=== PATIENT | female | born 1995 ===

== ENCOUNTER 2018-07-28 19:57 | Emergency (ER) | payer MEDICAID ==
--- NOTE | 2018-07-28 21:08 | C.PDOC ---
History Of Present Illness 22 year old female presents to the ER with a complaint of bleeding for the past 14 days and cramping pelvic pain. Patient states the bleeding was consistently at first, over the last week it became intermittent, it stop yesterday and today had light scant bleeding. Patient reports she does not have a MIMEOGRAPHER. Denies nausea, vomiting, urinary symptoms, back pain, or concern for STD. Time Seen by Provider: 07/28/18 20:25 Chief Complaint (Nursing): Female Genitourinary History Per: Patient History/Exam Limitations: no limitations Onset/Duration Of Symptoms: Days, Intermittent Episodes Current Symptoms Are (Timing): Still Present Quality Of Discomfort: Unable To Describe Associated Symptoms: denies: Fever, Nausea, Vomiting, Back Pain, Urinary Symptoms Alleviating Factors: None Recent travel outside of the [place]: No Abnormal Vaginal Bleeding: Yes Past Medical History Reviewed: Historical Data, Nursing Documentation, Vital Signs Vital Signs: Last Vital Signs Temp 99.1 F 07/28/18 21:14 Pulse 87 07/28/18 21:14 Resp 16 07/28/18 21:14 BP 112/72 07/28/18 21:14 Pulse Ox 100 07/28/18 21:40 - Medical History PMH: No Chronic Diseases Surgical History: No Surg Hx Family History: States: Unknown Family Hx - Social History Hx Alcohol Use: No Hx Substance Use: No - Immunization History Hx Tetanus Toxoid Vaccination: No Hx Influenza Vaccination: No Hx Pneumococcal Vaccination: No Review Of Systems Constitutional: Negative for: Fever, Chills Cardiovascular: Negative for: Palpitations Respiratory: Negative for: Shortness of Breath Gastrointestinal: Negative for: Nausea, Vomiting Genitourinary: Positive for: Vaginal Bleeding. Negative for: Dysuria, Hematuria Musculoskeletal: Negative for: Back Pain Neurological: Negative for: Weakness, Headache, Dizziness Physical Exam - Physical Exam Appears: Non-toxic Skin: Normal Color, Warm, Dry Head: Atraumatic, Normacephalic Eye(s): bilateral: Normal Inspection, EOMI, Other (no conjunctival pallor) Oral Mucosa: Moist Neck: Normal ROM Chest: Symmetrical, No Tenderness Cardiovascular: Rhythm Regular Respiratory: Normal Breath Sounds, No Rales, No Rhonchi, No Wheezing Gastrointestinal/Abdominal: Soft, Tenderness (Mild suprapubic), No Guarding, No Rebound Back: No CVA Tenderness Pelvic: No Vaginal Bleeding, Vaginal Discharge (Scant white, no foul odor), No Cervical Motion Tenderness, No Adnexal Tenderness, No Mass Neurological/Psych: Oriented x3, Normal Speech ED Course And Treatment O2 Sat by Pulse Oximetry: 100 (Room air) Pulse Ox Interpretation: Normal Medical Decision Making Medical Decision Making: Patient with complaints of intermittent vaginal bleeding, not currently bleeding. test was negative. Vitals are stable, and no complaints of weakness or dizziness to suggest any hemodynamic instability; there is no indication for further medical evaluation at this time.Will discharge home with instructions to follow up with MIMEOGRAPHER. Disposition Counseled Patient/Family Regarding: Diagnosis, Need For Followup - Dis[facility] Disposition: HOME/ ROUTINE Disposition Time: 21:06 Condition: STABLE Additional Instructions: Seguimiento con gineclogo o clnica jerica naproxeno para el dolor segn sea necesario jerica provera si el sangrado contina Prescriptions: MedroxyPROGESTERone [Provera] 1 tab PO DAILY #10 tab Naproxen [Naprosyn] 1 tab PO BID PRN #25 tab PRN Reason: Pain Instructions: Menstrual Cramps (DC) Forms: [employer] (Greek) Print Language: FRISIAN - POA Present On Arrival: None - Clinical Impression Clinical Impression: Dysmenorrhea - PA / [employer] / Resident Statement MD/DO has reviewed & agrees with the documentation as recorded. - Scribe Statement The provider has reviewed the documentation as recorded by the Scribe Pardeep Brock All medical record entries made by the Scribe were at my direction and personally dictated by me. I have reviewed the chart and agree that the record accurately reflects my personal performance of the history, physical exam, medical decision making, and the department course for this patient. I have also personally directed, reviewed, and agree with the discharge instructions and disposition.
[2018-07-28 21:15] VITALS: BP 112/72; PULSE 87; RESP 16; TEMP 99.1
[2018-07-28 21:31] VITALS: O2SAT 100
== END 2018-07-28 21:28 | disposition home or self-care (01) ==
LOC: C.ER 19:57
DX: N94.6 Dysmenorrhea, unspecified (principal)